=== PATIENT | male | born 1980 | race African-American/Black ===

== ENCOUNTER 2020-01-31 | Emergency (ER) | payer OTHER ==
--- NOTE | 2020-01-31 13:22 | ER ---
Nurse's Notes [facility] Name: Aleks Aranda II Age: 39 yrs Sex: Male : 1980 Arrival Date: 01/31/2020 Time: 00:22 Bed External Waiting Private MD: Diagnosis: Assessment: 01/30 02:15 Reassessment: pt called for available exam room, with no answer. ED Course: 00:22 Patient arrived in ED. am2 Administered Medications: No medications were administered Outcome: 02:02 Patient left the ED. 02:15 Eloped from waiting room, Time discovered patient gone: January 31, 2020 at 02:15 02:15 Condition: stable sg Signatures: Alexandru Quintana, RN RN Padmaja Long am2
== END 2020-01-31 02:02 | disposition left against medical advice (07) ==
DX: Z02.9 Encounter for administrative examinations, unspecified (principal)